=== PATIENT | male | born 1960 | race Caucasian/White ===

== ENCOUNTER 2018-12-13 08:14 | Day surgery (SDC) ==
[2018-12-13] MEDS ORDERED: LIDOCAINE 1% 20 ML MDV ID STA (10:18)
[2018-12-13] MEDS ORDERED: ANECTINE ONE (11:15)
[2018-12-13] MEDS ORDERED: SUBLIMAZE ONE (11:15)
[2018-12-13] MEDS ORDERED: DIPRIVAN 20 ML VIAL IVP ONE (11:15)
[2018-12-13] MEDS ORDERED: VERSED ONE (11:15)
--- NOTE | 2018-12-13 12:55 | OP ---
PREOPERATIVE DIAGNOSIS: CARCINOMA OF THE LARYNX POSTOPERATIVE DIAGNOSIS: INFLAMMATION OF THE VOCAL CORDS OPERATION: DIRECT LARYNGOSTOMY AND BIOPSY PROCEDURE: The patient was taken to surgery, placed on the table and general anesthesia was administered. A anterior laryngoscope was inserted down to the level of the vocal cords and using a 4mm lens the vocals were inflamed but noticed a ximena carcinoma. A biopsy was taken of the left true cord. The base of the tongue appeared free of disease and epiglottis appeared free of disease as well as the piriform sinuses. The patient was awakened and taken back to the recovery room in satisfactory condition. VIRGIL
[2018-12-13 13:20] VITALS: BP 169/98; TEMP 97.8
== END 2018-12-13 12:56 | disposition home or self-care (01) ==
LOC: SURG 08:14
PROVIDERS: ATTEND Otolaryngology
DX: J38.7 Other diseases of larynx (principal); J38.3 Other diseases of vocal cords
CPT/HCPCS: 31536